=== PATIENT | female | born 1990 | race Caucasian/White ===

== ENCOUNTER → 2016-05-10 | Outpatient (CLI) | payer BC ==
[~2016-05-10] MED LIST: ABILIFY5 MG PO; ADVAIR IH; ALLEGRA 60MG TA60 MG PO; ALLEGRA30 MG; ALLERGY MED; AMBIEN 5MG TABLE5 MG PO; ANTIVERT 25MG25 MG PO; ATARAX50 MG PO; ATIVAN 0.50.5 MG/TAB PO; ATROVENT INHALE14 GM IH; BCP TD; BELSOMRA10 MG PO; BENADRYL50 MG PO; BIRTH CONTROL; BRINTELLIX5; CELEXA40 MG PO; CLEOCIN HC150 MG/CAP PO; COGENTIN .0.5 MG/TAB PO; CYMBALTA 60MG60 MG PO; DESYREL 50MG50 MG PO; DULERA1 AR1 IH; DULERA1 ARO; DULERA1 ARO IH; FLONASE NASAL S16 GM NS; GEODON 20 MG20 MG; GEODON 20 MG20 MG PO; IMITREX100 MG PO; INDERAL 20MG20 MG PO; IRON 27 MG PO; K-DUR 10 MEQ T10 MEQ PO; KEPPRA 500MG500 MG PO; LAMICTAL 25MG T25 MG PO; LATUDA40 MG PO; MACRODANTIN100; MICRO-K 10 EXT10 MEQ PO; MINIPRESS2 MG PO; MIRENA52 MG IU; MOBIC 7.5MG7.5 MG PO; MVI; NAPROSYN500 MG PO; NASONEX SPRAY; NASONEX SPRAY17 GM; NASONEX SPRAY17 GM NS; NORCO 325 MG-51 TAB PO; NORCO 325 MG-7.1 TAB PO; PEPCID 20MG TAB20 MG PO; PERCOCET 5/321 UDTAB PO; PREDNISONE20 MG PO; PREVACID 30MG30 MG PO; PRIL40 PO; PROAIR; PROTONIX 40MG T40 MG PO; PROZAC 20MG20 MG PO; RESTORIL 1515 MG/CAP PO; RISPERDAL 0.5M0.5 MG PO; ROBITUSSIN; RT SPIRIVA18 MCG IH; SEASONIQUE1 TAB PO; SEROQUEL XR150 MG PO; SEROQUEL50 MG PO; SINGULAIR 110 MG/TAB; SINGULAIR 110 MG/TAB PO; SUDAFED 12 HOU120 MG PO; TOPAMAX 100MG100 M1 PO; TOPAMAX 25MG25 M1 PO; TYLENOL 325MG325 MG PO; ULTRAM50 MG PO; VENTOLIN0.09 MG; VENTOLIN0.09 MG IH; WELLBUTRIN XL150 MG PO; ZECUITY; ZITHROMAX Z PA250 MG PO; ZOFRAN 4MG T4 MG/TAB PO; ZONEGRAN 100MG100 MG PO; ZYPREXA ZYD10 MG/TAB PO; ZYRTEC 10MG10 MG PO
== END ==
LOC: BHSO 13:20
DX: F31.81 Bipolar II disorder (principal)

== ENCOUNTER → 2016-06-10 | Outpatient (CLI) | payer BC | LOC: BHSO 09:19 | DX: F31.81 Bipolar II disorder (principal) ==

== ENCOUNTER → 2016-07-08 | Outpatient (CLI) | payer BC | LOC: BHSO 09:23 | DX: F31.81 Bipolar II disorder (principal) ==

== ENCOUNTER 2016-07-17 01:58 | Emergency (ER) | payer BC ==
[~2016-07-17] VITALS: Ht 162.6 cm; Wt 86.4 kg
[~2016-07-17 01:58] MED LIST changes: -ATARAX50 MG PO; -GEODON 20 MG20 MG PO; -K-DUR 10 MEQ T10 MEQ PO; -KEPPRA 500MG500 MG PO; -LATUDA40 MG PO; -MICRO-K 10 EXT10 MEQ PO; -PROTONIX 40MG T40 MG PO
[2016-07-17] MEDS ORDERED: LATUDA40 MG PO (02:05)
[2016-07-17 02:06] VITALS: BP 128/91; TEMP 98.1
[2016-07-17 02:31] LABS: BASO # 0.1 (0.0-0.2); BASO % 0.5 % (0.0-2.0); EOS # 0.3 (0.0-0.7); EOS % 2.3 % (0-4.0); GRAN # 7.2 (1.4-6.5); GRAN % 63.9 % (42.2-75.2); HEMATOCRIT 43.6 % (37.0-47.0); HEMOGLOBIN 14.3 g/dl (12.5-16.0); LYMPH % 26.5 % (20.0-51.0); MEAN CELL VOLUME 88 fl (80.0-100.0); MEAN CORPUSCULAR HEMOGLOBIN 29 pg (27.0-31.0); MEAN CORPUSCULAR HGB CONC 33 g/dl (33.0-37.0); MONO # 0.8 (0.1-0.6); MONO % 6.6 % (1.7-9.3); PLATELET COUNT 254 K/mm3 (130-400); RED BLOOD COUNT 4.94 M/mm3 (4.10-5.30); REDCELL DISTRIBUTION WIDTH-CV 11.9 % (11.5-14.5); WHITE BLOOD COUNT 11.3 K/mm3 (4.8-10.8)
[2016-07-17 02:41] LABS: ACETAMINOPHEN 25 ug/mL (10-30); ADJUSTED CALCIUM 9.6 mg/dL (8.4-10.2); ALANINE AMINOTRANSFERASE 26 U/L (9-52); ALBUMIN 4.4 gm/dL (3.5-5.0); ALKALINE PHOSPHATASE 81 U/L (50-136); ANION GAP 16 mmol/L (7-16); BILIRUBIN,TOTAL 0.7 mg/dL (0.0-1.0); BLOOD UREA NITROGEN 12 mg/dL (7-17); CALCIUM 9.9 mg/dL (8.4-10.2); CARBON DIOXIDE 22 mmol/L (22-30); CHLORIDE 105 mmol/L (98-107); CREATININE, serum 0.93 mg/dL (0.52-1.25); GLUCOSE 101 mg/dL (74-106); POTASSIUM 3.1 mmol/L (3.4-5.0); SODIUM 142 mmol/L (137-145); TOTAL PROTEIN 8.5 gm/dL (6.4-8.2)
[2016-07-17 02:42] LABS: SALICYLATE < 1.0 mg/dL
[2016-07-17 03:01] LABS: AMPHETAMINE URINE NEGATIVE; BARBITURATES URINE NEGATIVE; BENZODIAZEPINES URINE NEGATIVE; BUPRENORPHINE URINE NEGATIVE; METHADONE URINE NEGATIVE; OPIATES URINE NEGATIVE; OXYCODONE URINE NEGATIVE; PHENCYCLIDINE URINE NEGATIVE; PROPOXYPHENE URINE NEGATIVE; THC CANNABINOIDS URINE NEGATIVE
[2016-07-17 04:51] VITALS: PULSE 88
== END 2016-07-17 04:53 ==
LOC: COL.ER 01:58
PROVIDERS: Nurse Practitioner
DX: F32.9 Major depressive disorder, single episode, unspecified (principal); F41.9 Anxiety disorder, unspecified; F43.10 Post-traumatic stress disorder, unspecified; R45.851 Suicidal ideations

== ENCOUNTER → 2016-08-02 | Outpatient (CLI) | payer BC ==
[~2016-08-02] MED LIST changes: +ATARAX50 MG PO; +GEODON 20 MG20 MG PO; +K-DUR 10 MEQ T10 MEQ PO; +KEPPRA 500MG500 MG PO; +LATUDA40 MG PO; +MICRO-K 10 EXT10 MEQ PO; +PROTONIX 40MG T40 MG PO
== END ==
LOC: BHSO 11:23
DX: F43.10 Post-traumatic stress disorder, unspecified (principal)

== ENCOUNTER 2016-08-18 23:58 | Emergency (ER) | payer BC ==
[~2016-08-18] VITALS: Ht 162.6 cm; Wt 81.8 kg
[~2016-08-18 23:58] MED LIST changes: -ATARAX50 MG PO; -GEODON 20 MG20 MG PO; -K-DUR 10 MEQ T10 MEQ PO; -KEPPRA 500MG500 MG PO; -MICRO-K 10 EXT10 MEQ PO; -PROTONIX 40MG T40 MG PO
[2016-08-19 00:03] VITALS: BP 115/65; TEMP 98
[2016-08-19 00:33] LABS: BASO # 0.1 (0.0-0.2); BASO % 0.5 % (0.0-2.0); EOS # 0.2 (0.0-0.7); EOS % 2.2 % (0-4.0); GRAN # 5.9 (1.4-6.5); GRAN % 57.4 % (42.2-75.2); HEMATOCRIT 43.3 % (37.0-47.0); HEMOGLOBIN 14.6 g/dl (12.5-16.0); LYMPH # 3.2 (1.2-3.4); MEAN CELL VOLUME 86 fl (80.0-100.0); MEAN CORPUSCULAR HEMOGLOBIN 29 pg (27.0-31.0); MEAN CORPUSCULAR HGB CONC 34 g/dl (33.0-37.0); MONO # 0.9 (0.1-0.6); MONO % 8.7 % (1.7-9.3); PLATELET COUNT 270 K/mm3 (130-400); RED BLOOD COUNT 5.04 M/mm3 (4.10-5.30); WHITE BLOOD COUNT 10.2 K/mm3 (4.8-10.8)
[2016-08-19 00:45] LABS: ADJUSTED CALCIUM 9.3 mg/dL (8.4-10.2); ALBUMIN 4.2 gm/dL (3.5-5.0); BILIRUBIN,TOTAL 0.9 mg/dL (0.0-1.0); C-REACTIVE PROTEIN 2.2 mg/dL (0.0-0.9); CALCIUM 9.5 mg/dL (8.4-10.2); CREATININE, serum 0.97 mg/dL (0.52-1.25); POTASSIUM 3.3 mmol/L (3.4-5.0); TOTAL PROTEIN 7.4 gm/dL (6.4-8.2)
[2016-08-19] MEDS ORDERED: ZOFRAN 4MG T4 MG/TAB PO (01:40)
[2016-08-19 03:04] VITALS: PULSE 65
== END 2016-08-19 03:05 | disposition home or self-care (01) ==
LOC: COL.ER 23:58
PROVIDERS: Nurse Practitioner
DX: K52.9 Noninfective gastroenteritis and colitis, unspecified (principal); R10.31 Right lower quadrant pain; J45.909 Unspecified asthma, uncomplicated; G40.909 Epilepsy, unspecified, not intractable, without status epilepticus
CPT/HCPCS: J2405; J7030; Q9967

== ENCOUNTER → 2016-09-03 | Outpatient (CLI) | payer BC ==
[~2016-09-03] MED LIST changes: +ATARAX50 MG PO; +GEODON 20 MG20 MG PO; +K-DUR 10 MEQ T10 MEQ PO; +KEPPRA 500MG500 MG PO; +MICRO-K 10 EXT10 MEQ PO; +PROTONIX 40MG T40 MG PO
== END ==
LOC: BHSO 09:05
DX: F43.10 Post-traumatic stress disorder, unspecified (principal)

== ENCOUNTER → 2016-09-13 | Outpatient (CLI) | payer BC | LOC: BHSO 09:46 | DX: F31.81 Bipolar II disorder (principal) ==

== ENCOUNTER → 2016-09-28 | Outpatient (CLI) | payer BC | LOC: BHSO 10:14 | DX: F43.10 Post-traumatic stress disorder, unspecified (principal) ==

== ENCOUNTER → 2016-10-07 | Outpatient (CLI) | payer BC | LOC: BHSO 09:31 | DX: F31.81 Bipolar II disorder (principal) ==

== ENCOUNTER 2016-10-22 15:28 | Emergency (ER) | payer BC ==
[~2016-10-22] VITALS: Ht 162.6 cm; Wt 81.8 kg
[~2016-10-22 15:28] MED LIST changes: -ATARAX50 MG PO; -GEODON 20 MG20 MG PO; -K-DUR 10 MEQ T10 MEQ PO; -KEPPRA 500MG500 MG PO; -MICRO-K 10 EXT10 MEQ PO; -PROTONIX 40MG T40 MG PO
[2016-10-22 15:36] VITALS: BP 121/73; TEMP 98.4
[2016-10-22] MEDS ORDERED: GEODON 20 MG20 MG (15:41)
[2016-10-22 17:00] LABS: BASO % 0.3 % (0.0-2.0); EOS # 0.1 (0.0-0.7); EOS % 1.3 % (0-4.0); GRAN # 7.5 (1.4-6.5); GRAN % 76.8 % (42.2-75.2); HEMATOCRIT 44.6 % (37.0-47.0); HEMOGLOBIN 14.7 g/dl (12.5-16.0); LYMPH # 1.7 (1.2-3.4); LYMPH % 16.8 % (20.0-51.0); MEAN CELL VOLUME 87 fl (80.0-100.0); MEAN CORPUSCULAR HEMOGLOBIN 29 pg (27.0-31.0); MEAN CORPUSCULAR HGB CONC 33 g/dl (33.0-37.0); MONO # 0.4 (0.1-0.6); MONO % 4.5 % (1.7-9.3); PLATELET COUNT 242 K/mm3 (130-400); RED BLOOD COUNT 5.11 M/mm3 (4.10-5.30); REDCELL DISTRIBUTION WIDTH-CV 11.8 % (11.5-14.5); WHITE BLOOD COUNT 9.8 K/mm3 (4.8-10.8)
[2016-10-22 17:11] LABS: ADJUSTED CALCIUM 8.9 mg/dL (8.4-10.2); ALBUMIN 4.5 gm/dL (3.5-5.0); BILIRUBIN,TOTAL 0.7 mg/dL (0.0-1.0); CALCIUM 9.3 mg/dL (8.4-10.2); CREATININE, serum 0.82 mg/dL (0.52-1.25); POTASSIUM 3.2 mmol/L (3.4-5.0); TOTAL PROTEIN 8.1 gm/dL (6.4-8.2)
[2016-10-22] MEDS ORDERED: K-DUR 10 MEQ T10 MEQ PO (18:15)
[2016-10-22] MEDS ORDERED: KEPPRA 500MG500 MG PO (18:15)
[2016-10-22 18:30] VITALS: PULSE 78
== END 2016-10-22 18:32 | disposition home or self-care (01) ==
LOC: COL.ER 15:28
PROVIDERS: Emergency Medicine
DX: G40.209 Localization-related (focal) (partial) symptomatic epilepsy and epileptic syndromes with complex partial seizures, not intractable, without status epilepticus (principal)
CPT/HCPCS: J1953

== ENCOUNTER 2016-11-14 00:25 | Emergency (ER) | payer BC ==
[~2016-11-14] VITALS: Ht 162.6 cm; Wt 85.9 kg
[~2016-11-14 00:25] MED LIST changes: +K-DUR 10 MEQ T10 MEQ PO; +KEPPRA 500MG500 MG PO
[2016-11-14 00:27] VITALS: BP 113/67; PULSE 81; TEMP 98
[2016-11-14] MEDS ORDERED: GEODON 20 MG20 MG PO (00:31)
[2016-11-14] MEDS ORDERED: ATARAX50 MG PO (00:33)
== END 2016-11-14 00:59 | disposition home or self-care (01) ==
LOC: COL.ER 00:25
DX: G40.909 Epilepsy, unspecified, not intractable, without status epilepticus (principal); F32.9 Major depressive disorder, single episode, unspecified; F41.9 Anxiety disorder, unspecified; F43.10 Post-traumatic stress disorder, unspecified

== ENCOUNTER 2016-11-19 22:25 | Emergency (ER) | payer BC ==
[~2016-11-19] VITALS: Ht 162.6 cm; Wt 84.1 kg
[~2016-11-19 22:25] MED LIST changes: +ATARAX50 MG PO; +GEODON 20 MG20 MG PO
[2016-11-19 22:26] VITALS: TEMP 98.6
[2016-11-19 23:04] LABS: BASO # 0.1 (0.0-0.2); BASO % 0.5 % (0.0-2.0); EOS # 0.4 (0.0-0.7); EOS % 3.7 % (0-4.0); GRAN # 5.2 (1.4-6.5); GRAN % 55.3 % (42.2-75.2); HEMATOCRIT 39.2 % (37.0-47.0); LYMPH % 31.8 % (20.0-51.0); MEAN CELL VOLUME 86 fl (80.0-100.0); MEAN CORPUSCULAR HEMOGLOBIN 29 pg (27.0-31.0); MEAN CORPUSCULAR HGB CONC 33 g/dl (33.0-37.0); MEAN PLATELET VOLUME 10.2 fl (7.4-10.4); MONO # 0.8 (0.1-0.6); MONO % 8.5 % (1.7-9.3); PLATELET COUNT 245 K/mm3 (130-400); RED BLOOD COUNT 4.56 M/mm3 (4.10-5.30); REDCELL DISTRIBUTION WIDTH-CV 12.2 % (11.5-14.5); WHITE BLOOD COUNT 9.4 K/mm3 (4.8-10.8)
[2016-11-19 23:16] LABS: ADJUSTED CALCIUM 9.3 mg/dL (8.4-10.2); BILIRUBIN,TOTAL 0.5 mg/dL (0.0-1.0); CALCIUM 9.3 mg/dL (8.4-10.2); CREATININE, serum 0.84 mg/dL (0.52-1.25); POTASSIUM 3.6 mmol/L (3.4-5.0); TOTAL PROTEIN 7.2 gm/dL (6.4-8.2)
[2016-11-19 23:16] LABS: PH 7 (5-8); SQUAMOUS EPITHELIAL 0-2 /hpf; URINE APPEARANCE Clear; URINE BACTERIA Rare /hpf; URINE BILIRUBIN Negative (NEGATIVE); URINE BLOOD Negative (NEGATIVE); URINE COLOR Straw; URINE GLUCOSE Negative (NEGATIVE); URINE KETONE Negative (NEGATIVE); URINE RBC 0-2 /hpf; URINE UROBILINOGEN Negative (NEGATIVE); URINE WBC 0-2 /hpf
[2016-11-19 23:32] LABS: PROLACTIN 34.5 ng/mL (3.0-18.6)
[2016-11-20 00:13] VITALS: BP 128/78; PULSE 90
== END 2016-11-20 00:14 | disposition home or self-care (01) ==
LOC: COL.ER 22:25
PROVIDERS: Emergency Medicine
DX: R42 Dizziness and giddiness (principal); G40.909 Epilepsy, unspecified, not intractable, without status epilepticus
CPT/HCPCS: J7030

== ENCOUNTER 2016-11-23 01:02 | Inpatient (IN) | payer BC ==
[~2016-11-23] VITALS: Ht 165.1 cm; Wt 89.5 kg
[2016-11-23] VITALS (303 sets, daily range): BP systolic 118–135; BP diastolic 87; PULSE 93–107; TEMP 97.5–98.7; O2SAT 70–100
[2016-11-23 01:20] LABS: BASO # 0.1 (0.0-0.2); BASO % 0.6 % (0.0-2.0); EOS # 0.3 (0.0-0.7); EOS % 2.4 % (0-4.0); GRAN % 55.4 % (42.2-75.2); HEMATOCRIT 40.1 % (37.0-47.0); HEMOGLOBIN 13.5 g/dl (12.5-16.0); LYMPH # 3.5 (1.2-3.4); MEAN CELL VOLUME 86 fl (80.0-100.0); MEAN CORPUSCULAR HEMOGLOBIN 29 pg (27.0-31.0); MEAN CORPUSCULAR HGB CONC 34 g/dl (33.0-37.0); MEAN PLATELET VOLUME 10.2 fl (7.4-10.4); MONO % 9.3 % (1.7-9.3); PLATELET COUNT 231 K/mm3 (130-400); RED BLOOD COUNT 4.68 M/mm3 (4.10-5.30); REDCELL DISTRIBUTION WIDTH-CV 12.4 % (11.5-14.5); WHITE BLOOD COUNT 10.8 K/mm3 (4.8-10.8)
[2016-11-23 01:32] LABS: ALANINE AMINOTRANSFERASE 25 U/L (9-52); ALBUMIN 4.3 gm/dL (3.5-5.0); ALKALINE PHOSPHATASE 71 U/L (50-136); ANION GAP 12 mmol/L (7-16); BILIRUBIN,TOTAL 0.6 mg/dL (0.0-1.0); BLOOD UREA NITROGEN 9 mg/dL (7-17); CALCIUM 9.2 mg/dL (8.4-10.2); CARBON DIOXIDE 22 mmol/L (22-30); CHLORIDE 103 mmol/L (98-107); CREATININE, serum 0.93 mg/dL (0.52-1.25); GLUCOSE 119 mg/dL (74-106); POTASSIUM 3.4 mmol/L (3.4-5.0); SALICYLATE < 1.0 mg/dL; SODIUM 137 mmol/L (137-145); TOTAL PROTEIN 7.6 gm/dL (6.4-8.2)
[2016-11-23 01:33] LABS: ACETAMINOPHEN 199 ug/mL (10-30)
[2016-11-23 01:43] LABS: PH 5 (5-8); SQUAMOUS EPITHELIAL 0-2 /hpf; URINE APPEARANCE Clear; URINE BACTERIA Occasional /hpf; URINE BILIRUBIN Negative (NEGATIVE); URINE BLOOD Negative (NEGATIVE); URINE COLOR Yellow; URINE GLUCOSE Negative (NEGATIVE); URINE KETONE Negative (NEGATIVE); URINE UROBILINOGEN Negative (NEGATIVE)
[2016-11-23 01:48] LABS: AMPHETAMINE URINE NEGATIVE; BARBITURATES URINE NEGATIVE; BENZODIAZEPINES URINE POSITIVE; BUPRENORPHINE URINE NEGATIVE; METHADONE URINE NEGATIVE; OPIATES URINE NEGATIVE; OXYCODONE URINE NEGATIVE; PHENCYCLIDINE URINE NEGATIVE; PROPOXYPHENE URINE NEGATIVE; THC CANNABINOIDS URINE NEGATIVE
[2016-11-23 02:58] LABS: PROTHROMBIN TIME 11.5 SECONDS (9.7-12.8)
[2016-11-23 03:57] LABS: AMYLASE 89 U/L (30-110); LIPASE 77 U/L (23-300); MAGNESIUM 1.6 mg/dL (1.6-2.3)
[2016-11-23] MEDS ORDERED: DULERA1 ARO IH (04:15)
[2016-11-23] MEDS ORDERED: DULERA1 AR1 IH (04:16)
[2016-11-23 08:18] LABS: INR 1.1 (0.8-3.0); PROTHROMBIN TIME 12.2 SECONDS (9.7-12.8)
[2016-11-23 08:22] LABS: ACETAMINOPHEN 39 ug/mL (10-30); ADJUSTED CALCIUM 8.5 mg/dL (8.4-10.2); ALANINE AMINOTRANSFERASE 21 U/L (9-52); ALKALINE PHOSPHATASE < 20 U/L (50-136); ANION GAP 17 mmol/L (7-16); BILIRUBIN,TOTAL 0.5 mg/dL (0.0-1.0); BLOOD UREA NITROGEN 8 mg/dL (7-17); CALCIUM 8.5 mg/dL (8.4-10.2); CARBON DIOXIDE 21 mmol/L (22-30); CHLORIDE 103 mmol/L (98-107); CREATININE, serum 0.66 mg/dL (0.52-1.25); GLUCOSE 160 mg/dL (74-106); POTASSIUM 3.3 mmol/L (3.4-5.0); SODIUM 141 mmol/L (137-145); TOTAL PROTEIN 7.2 gm/dL (6.4-8.2)
[2016-11-23 08:38] LABS: BILIRUBIN,DIRECT 0.4 mg/dL (0.0-0.4)
[2016-11-24 00:30] VITALS: BP 136/80; PULSE 105; TEMP 98.6
[2016-11-24 04:30] VITALS: BP 126/93; PULSE 116; TEMP 98.8
[2016-11-24 05:51] LABS: BASO % 0.4 % (0.0-2.0); EOS % 0.2 % (0-4.0); GRAN # 6.3 (1.4-6.5); GRAN % 70.3 % (42.2-75.2); HEMOGLOBIN 13.3 g/dl (12.5-16.0); LYMPH % 22.2 % (20.0-51.0); MEAN CELL VOLUME 85 fl (80.0-100.0); MEAN CORPUSCULAR HEMOGLOBIN 28 pg (27.0-31.0); MEAN CORPUSCULAR HGB CONC 33 g/dl (33.0-37.0); MEAN PLATELET VOLUME 10.4 fl (7.4-10.4); MONO # 0.6 (0.1-0.6); MONO % 6.7 % (1.7-9.3); PLATELET COUNT 226 K/mm3 (130-400); RED BLOOD COUNT 4.71 M/mm3 (4.10-5.30); REDCELL DISTRIBUTION WIDTH-CV 12.5 % (11.5-14.5)
[2016-11-24 05:55] LABS: INR 1.1 (0.8-3.0); PROTHROMBIN TIME 12.7 SECONDS (9.7-12.8)
[2016-11-24 06:05] LABS: ADJUSTED CALCIUM 9.5 mg/dL (8.4-10.2); ALBUMIN 3.8 gm/dL (3.5-5.0); BILIRUBIN,TOTAL 0.6 mg/dL (0.0-1.0); CALCIUM 9.3 mg/dL (8.4-10.2); CREATININE, serum 0.7 mg/dL (0.52-1.25); POTASSIUM 3.2 mmol/L (3.4-5.0); TOTAL PROTEIN 6.9 gm/dL (6.4-8.2)
[2016-11-24 07:30] VITALS: BP 135/85; PULSE 80; TEMP 98.8
[2016-11-24] MEDS ORDERED: MICRO-K 10 EXT10 MEQ PO (14:43)
[2016-11-24] MEDS ORDERED: PROTONIX 40MG T40 MG PO (14:43)
== END 2016-11-24 17:30 | DRG 918 ==
LOC: COL.ER 01:02 → ICU 04:22
PROVIDERS: Family Medicine; Nurse Practitioner Family
DX: T39.1X2A Poisoning by 4-Aminophenol derivatives, intentional self-harm, initial encounter (principal); F31.81 Bipolar II disorder; F43.12 Post-traumatic stress disorder, chronic; G40.909 Epilepsy, unspecified, not intractable, without status epilepticus; J45.909 Unspecified asthma, uncomplicated; F60.3 Borderline personality disorder; E87.6 Hypokalemia
CPT/HCPCS: 90791-AI; 99232-AI; 99239; C9113; J0132; J2405; J7030; J7060; J7070

== ENCOUNTER → 2016-12-10 | Outpatient (CLI) | payer BC ==
[~2016-12-10] MED LIST changes: +MICRO-K 10 EXT10 MEQ PO; +PROTONIX 40MG T40 MG PO
== END ==
LOC: BHSO 10:03
DX: F43.10 Post-traumatic stress disorder, unspecified (principal)

== ENCOUNTER → 2017-01-20 | Outpatient (CLI) | payer BC | LOC: BHSO 10:34 | DX: F31.81 Bipolar II disorder (principal) ==

== ENCOUNTER → 2017-02-09 | Outpatient (CLI) | payer BC | LOC: BHSO 09:15 | DX: F31.81 Bipolar II disorder (principal) ==

== ENCOUNTER → 2017-03-18 | Outpatient (CLI) | payer BC ==
[~2017-03-18] MED LIST changes: +ATARAX 10MG10 MG/TAB PO; +KLONOPIN 1MG1 MG; +ZYPREXA20 MG PO
== END ==
LOC: BHSO 09:30
DX: F31.81 Bipolar II disorder (principal)

== ENCOUNTER → 2017-04-11 | Outpatient (CLI) | payer BC | LOC: BHSO 09:25 | DX: F43.10 Post-traumatic stress disorder, unspecified (principal) ==

== ENCOUNTER 2017-06-25 20:35 | Emergency (ER) | payer BC ==
[~2017-06-25] VITALS: Ht 162.6 cm; Wt 86.4 kg
[2017-06-25 20:42] VITALS: BP 156/93; TEMP 98.2
[2017-06-25] MEDS ORDERED: HALDOL 1MG T1 MG/TAB PO (20:53)
[2017-06-25] MEDS ORDERED: BREO IH (20:54)
[2017-06-25] MEDS ORDERED: DAYSEE (20:54)
[2017-06-25 21:26] LABS: CREATININE, serum 0.83 mg/dL (0.52-1.25); POTASSIUM 3.5 mmol/L (3.4-5.0)
[2017-06-25] MEDS ORDERED: ATIVAN 1MG T1 MG/TAB PO (21:41)
[2017-06-25 22:26] VITALS: PULSE 105
== END 2017-06-25 22:26 | disposition home or self-care (01) ==
LOC: COL.ER 20:35
PROVIDERS: Emergency Medicine
DX: R51 Headache (principal); F43.10 Post-traumatic stress disorder, unspecified; F41.9 Anxiety disorder, unspecified; F32.9 Major depressive disorder, single episode, unspecified; Z98.890 Other specified postprocedural states; Z79.51 Long term (current) use of inhaled steroids
CPT/HCPCS: J2060; J7030

== ENCOUNTER → 2017-06-28 | Outpatient (CLI) | payer BC ==
[~2017-06-28] MED LIST changes: +ATIVAN 1MG T1 MG/TAB PO; +BREO IH; +DAYSEE; +HALDOL 1MG T1 MG/TAB PO
== END ==
LOC: BHSO 08:01
DX: F31.81 Bipolar II disorder (principal)
CPT/HCPCS: G0463

== ENCOUNTER → 2017-08-24 | Outpatient (CLI) | payer BC | LOC: BHSO 09:49 | DX: F43.10 Post-traumatic stress disorder, unspecified (principal) | CPT/HCPCS: G0463 ==

== ENCOUNTER 2017-09-15 22:08 | Emergency (ER) | payer BC ==
[~2017-09-15] VITALS: Ht 162.6 cm; Wt 95.5 kg
[~2017-09-15 22:08] MED LIST changes: +ZONEGRAN50 MG PO
[2017-09-15 22:14] VITALS: TEMP 98.3
[2017-09-15 22:35] LABS: BASO # 0.1 (0.0-0.2); BASO % 0.5 % (0.0-2.0); EOS # 0.3 (0.0-0.7); EOS % 2.5 % (0-4.0); GRAN # 6.7 (1.4-6.5); GRAN % 63.4 % (42.2-75.2); HEMATOCRIT 41.8 % (37.0-47.0); HEMOGLOBIN 13.7 g/dl (12.5-16.0); LYMPH # 2.6 (1.2-3.4); LYMPH % 24.4 % (20.0-51.0); MEAN CELL VOLUME 89 fl (80.0-100.0); MEAN CORPUSCULAR HEMOGLOBIN 29 pg (27.0-31.0); MEAN CORPUSCULAR HGB CONC 33 g/dl (33.0-37.0); MEAN PLATELET VOLUME 10.5 fl (7.4-10.4); MONO # 0.9 (0.1-0.6); MONO % 8.9 % (1.7-9.3); PLATELET COUNT 260 K/mm3 (130-400); RED BLOOD COUNT 4.72 M/mm3 (4.10-5.30); REDCELL DISTRIBUTION WIDTH-CV 12.8 % (11.5-14.5)
[2017-09-15] MEDS ORDERED: ZYPREXA20 MG PO (22:41)
[2017-09-15 22:47] LABS: ACETAMINOPHEN < 10 ug/mL (10-30); ALANINE AMINOTRANSFERASE 28 U/L (9-52); ALBUMIN 3.8 gm/dL (3.5-5.0); ALKALINE PHOSPHATASE 48 U/L (50-136); ANION GAP 15 mmol/L (7-16); AST,SGOT 29 U/L (15-37); BILIRUBIN,TOTAL 0.3 mg/dL (0.0-1.0); BLOOD UREA NITROGEN 7 mg/dL (7-17); CALCIUM 9.1 mg/dL (8.4-10.2); CARBON DIOXIDE 19 mmol/L (22-30); CHLORIDE 107 mmol/L (98-107); CREATININE, serum 0.78 mg/dL (0.52-1.25); GLUCOSE 167 mg/dL (74-106); POTASSIUM 3.9 mmol/L (3.4-5.0); SODIUM 141 mmol/L (137-145); TOTAL PROTEIN 7.6 gm/dL (6.4-8.2)
[2017-09-15 23:19] LABS: TRICYCLIC ANTIDEPRESS URINE NEGATIVE
[2017-09-16 00:45] VITALS: BP 136/95; PULSE 107
== END 2017-09-16 00:46 | disposition home or self-care (01) ==
LOC: COL.ER 22:08
PROVIDERS: Emergency Medicine
DX: F41.9 Anxiety disorder, unspecified (principal); F31.9 Bipolar disorder, unspecified; Z79.51 Long term (current) use of inhaled steroids
CPT/HCPCS: J1200; J1630; J2060; J7030

== ENCOUNTER 2017-10-04 13:47 | Emergency (ER) | payer BC ==
[~2017-10-04] VITALS: Ht 160 cm; Wt 95.5 kg
[2017-10-04 13:49] VITALS: TEMP 99
[2017-10-04] MEDS ORDERED: PROTONIX 40MG T40 MG PO (13:57)
[2017-10-04 14:35] LABS: BASO # 0.1 (0.0-0.2); BASO % 0.5 % (0.0-2.0); EOS # 0.3 (0.0-0.7); EOS % 3.4 % (0-4.0); GRAN # 6.7 (1.4-6.5); GRAN % 69.8 % (42.2-75.2); HEMATOCRIT 39.8 % (37.0-47.0); HEMOGLOBIN 13.3 g/dl (12.5-16.0); LYMPH # 1.9 (1.2-3.4); LYMPH % 19.4 % (20.0-51.0); MEAN CELL VOLUME 88 fl (80.0-100.0); MEAN CORPUSCULAR HEMOGLOBIN 30 pg (27.0-31.0); MEAN CORPUSCULAR HGB CONC 33 g/dl (33.0-37.0); MEAN PLATELET VOLUME 11.2 fl (7.4-10.4); MONO # 0.6 (0.1-0.6); MONO % 6.6 % (1.7-9.3); PLATELET COUNT 212 K/mm3 (130-400); REDCELL DISTRIBUTION WIDTH-CV 12.5 % (11.5-14.5)
[2017-10-04 14:38] LABS: ALANINE AMINOTRANSFERASE 27 U/L (9-52); ALBUMIN 3.5 gm/dL (3.5-5.0); ALKALINE PHOSPHATASE 50 U/L (50-136); ANION GAP 14 mmol/L (7-16); AST,SGOT 36 U/L (15-37); BILIRUBIN,TOTAL 0.4 mg/dL (0.0-1.0); BLOOD UREA NITROGEN 10 mg/dL (7-17); CALCIUM 9.3 mg/dL (8.4-10.2); CARBON DIOXIDE 17 mmol/L (22-30); CHLORIDE 104 mmol/L (98-107); CREATININE, serum 0.79 mg/dL (0.52-1.25); GLUCOSE 337 mg/dL (74-106); POTASSIUM 3.8 mmol/L (3.4-5.0); SODIUM 136 mmol/L (137-145); TOTAL PROTEIN 6.9 gm/dL (6.4-8.2)
[2017-10-04 14:39] LABS: ACETAMINOPHEN < 10 ug/mL (10-30); ALCOHOL(ethanol),MEDICAL < 10 mg/dL; SALICYLATE < 1.0 mg/dL
[2017-10-04 15:28] LABS: COLLECTION METHOD CLEAN CATCH
[2017-10-04 15:41] LABS: PH 6 (5-8); URINE APPEARANCE Clear; URINE BACTERIA None Seen /hpf; URINE BILIRUBIN Negative (NEGATIVE); URINE BLOOD Negative (NEGATIVE); URINE COLOR Straw; URINE GLUCOSE 3+ (NEGATIVE); URINE KETONE Negative (NEGATIVE); URINE LEUKOCYTE ESTERASE Negative (NEGATIVE); URINE NITRATE Negative (NEGATIVE); URINE PROTEIN(semi-quant) Negative (NEGATIVE); URINE RBC 0-2 /hpf; URINE UROBILINOGEN Negative (NEGATIVE)
[2017-10-04 15:46] LABS: TRICYCLIC ANTIDEPRESS URINE NEGATIVE
[2017-10-04 19:34] VITALS: BP 141/91; PULSE 128
== END 2017-10-04 19:38 ==
LOC: COL.ER 13:47
PROVIDERS: Emergency Medicine
DX: R45.851 Suicidal ideations (principal); F32.9 Major depressive disorder, single episode, unspecified; F41.9 Anxiety disorder, unspecified; J45.909 Unspecified asthma, uncomplicated; Z88.8 Allergy status to other drugs, medicaments and biological substances

== ENCOUNTER → 2017-10-26 | Outpatient (CLI) | payer BC | LOC: BHSO 09:24 | DX: F31.81 Bipolar II disorder (principal) | CPT/HCPCS: G0463 ==

== ENCOUNTER → 2017-11-15 | Outpatient (CLI) | payer BC | LOC: COL.RAD 06:04 | DX: R11.10 Vomiting, unspecified (principal); R68.81 Early satiety; E11.9 Type 2 diabetes mellitus without complications; E66.01 Morbid (severe) obesity due to excess calories | CPT/HCPCS: A9541 ==

== ENCOUNTER 2017-11-22 22:14 | Emergency (ER) | payer BC ==
[~2017-11-22] VITALS: Ht 162.6 cm; Wt 94.1 kg
[~2017-11-22 22:14] MED LIST changes: +CARAFATE S1 GM/10 ML PO
[2017-11-22 22:16] VITALS: BP 123/77; TEMP 99
[2017-11-22 22:38] LABS: COLLECTION METHOD CLEAN CATCH
[2017-11-22 22:41] LABS: BASO # 0.1 (0.0-0.2); BASO % 0.6 % (0.0-2.0); EOS # 0.4 (0.0-0.7); EOS % 4.2 % (0-4.0); GRAN # 4.7 (1.4-6.5); GRAN % 53.6 % (42.2-75.2); HEMATOCRIT 42.4 % (37.0-47.0); HEMOGLOBIN 14.2 g/dl (12.5-16.0); LYMPH # 2.9 (1.2-3.4); LYMPH % 33.1 % (20.0-51.0); MEAN CELL VOLUME 87 fl (80.0-100.0); MEAN CORPUSCULAR HEMOGLOBIN 29 pg (27.0-31.0); MEAN CORPUSCULAR HGB CONC 34 g/dl (33.0-37.0); MEAN PLATELET VOLUME 10.8 fl (7.4-10.4); MONO # 0.7 (0.1-0.6); MONO % 8.4 % (1.7-9.3); PLATELET COUNT 259 K/mm3 (130-400); RED BLOOD COUNT 4.87 M/mm3 (4.10-5.30); REDCELL DISTRIBUTION WIDTH-CV 12.1 % (11.5-14.5)
[2017-11-22 22:46] LABS: MUCOUS Present /lpf; PH 5 (5-8); SQUAMOUS EPITHELIAL 0-2 /hpf; URINE APPEARANCE Clear; URINE BACTERIA Rare /hpf; URINE BILIRUBIN Negative (NEGATIVE); URINE BLOOD Negative (NEGATIVE); URINE COLOR Yellow; URINE GLUCOSE Negative (NEGATIVE); URINE KETONE Negative (NEGATIVE); URINE LEUKOCYTE ESTERASE Negative (NEGATIVE); URINE NITRATE Negative (NEGATIVE); URINE PROTEIN(semi-quant) Negative (NEGATIVE); URINE RBC None Seen /hpf; URINE UROBILINOGEN Negative (NEGATIVE)
[2017-11-22 22:54] LABS: BILIRUBIN,TOTAL 0.2 mg/dL (0.0-1.0); C-REACTIVE PROTEIN 2.5 mg/dL (0.0-0.9); CALCIUM 9.4 mg/dL (8.4-10.2); CREATININE, serum 0.74 mg/dL (0.52-1.25); POTASSIUM 3.6 mmol/L (3.4-5.0); TOTAL PROTEIN 7.2 gm/dL (6.4-8.2)
[2017-11-22] MEDS ORDERED: GLUCOPHAGE500 MG/TAB PO (23:09)
[2017-11-22] MEDS ORDERED: MIRTAZAPINE7.5 MG PO (23:10)
[2017-11-22] MEDS ORDERED: ZOFRAN ODT4 MG PO (23:11)
[2017-11-23 01:54] VITALS: PULSE 76
== END 2017-11-23 02:11 | disposition home or self-care (01) ==
LOC: COL.ER 22:14
PROVIDERS: Nurse Practitioner
DX: R10.13 Epigastric pain (principal); R11.10 Vomiting, unspecified; J45.909 Unspecified asthma, uncomplicated; F32.9 Major depressive disorder, single episode, unspecified; F31.9 Bipolar disorder, unspecified; F41.9 Anxiety disorder, unspecified; F43.10 Post-traumatic stress disorder, unspecified; F12.90 Cannabis use, unspecified, uncomplicated; Z88.2 Allergy status to sulfonamides; Z79.84 Long term (current) use of oral hypoglycemic drugs
CPT/HCPCS: J2405; J2550; J3010

== ENCOUNTER 2017-12-13 13:51 | Day surgery (SDC) | payer BC ==
[~2017-12-13] VITALS: Ht 162.6 cm; Wt 94.0 kg
[~2017-12-13 13:51] MED LIST changes: +GLUCOPHAGE500 MG/TAB PO; +MIRTAZAPINE7.5 MG PO; +ZOFRAN ODT4 MG PO
[2017-12-13 14:11] VITALS: BP 116/77; PULSE 81; TEMP 99.3
[2017-12-13] MEDS ORDERED: PROMETHAZINE12.5 M5 PO (15:28)
[2017-12-13 15:45] VITALS: BP 143/77; PULSE 119; TEMP 99.1
[2017-12-13 16:00] VITALS: BP 139/75; PULSE 109
[2017-12-13 16:15] VITALS: BP 147/84; PULSE 109
== END 2017-12-13 16:38 | disposition home or self-care (01) ==
LOC: SDCO 13:51
DX: K44.9 Diaphragmatic hernia without obstruction or gangrene (principal); R19.7 Diarrhea, unspecified; R11.2 Nausea with vomiting, unspecified; E11.9 Type 2 diabetes mellitus without complications; F32.9 Major depressive disorder, single episode, unspecified; F41.9 Anxiety disorder, unspecified; J45.909 Unspecified asthma, uncomplicated; K21.9 Gastro-esophageal reflux disease without esophagitis; G40.209 Localization-related (focal) (partial) symptomatic epilepsy and epileptic syndromes with complex partial seizures, not intractable, without status epilepticus; Z79.84 Long term (current) use of oral hypoglycemic drugs
CPT/HCPCS: J2704; J7030

== ENCOUNTER 2017-12-22 16:50 | Emergency (ER) | payer BC ==
[~2017-12-22] VITALS: Ht 160 cm; Wt 94.5 kg
[~2017-12-22 16:50] MED LIST changes: +PROMETHAZINE12.5 M5 PO
[2017-12-22 16:58] VITALS: TEMP 99
[2017-12-22 17:16] LABS: COLLECTION METHOD CLEAN CATCH
[2017-12-22 17:23] LABS: MUCOUS Present /lpf; PH 6 (5-8); SQUAMOUS EPITHELIAL 0-2 /hpf; URINE APPEARANCE Clear; URINE BACTERIA Rare /hpf; URINE BILIRUBIN Negative (NEGATIVE); URINE BLOOD 3+ (NEGATIVE); URINE COLOR Yellow; URINE GLUCOSE Negative (NEGATIVE); URINE KETONE Negative (NEGATIVE); URINE LEUKOCYTE ESTERASE Negative (NEGATIVE); URINE NITRATE Negative (NEGATIVE); URINE PROTEIN(semi-quant) Negative (NEGATIVE); URINE UROBILINOGEN >=4.0 mg/dL (NEGATIVE)
[2017-12-22 17:36] LABS: TRICYCLIC ANTIDEPRESS URINE NEGATIVE
[2017-12-22 17:38] LABS: BASO % 0.5 % (0.0-2.0); EOS # 0.4 (0.0-0.7); EOS % 4.6 % (0-4.0); GRAN % 59.4 % (42.2-75.2); HEMATOCRIT 45.7 % (37.0-47.0); HEMOGLOBIN 14.8 g/dl (12.5-16.0); LYMPH # 2.3 (1.2-3.4); LYMPH % 26.7 % (20.0-51.0); MEAN CELL VOLUME 89 fl (80.0-100.0); MEAN CORPUSCULAR HEMOGLOBIN 29 pg (27.0-31.0); MEAN CORPUSCULAR HGB CONC 32 g/dl (33.0-37.0); MEAN PLATELET VOLUME 10.5 fl (7.4-10.4); MONO # 0.7 (0.1-0.6); MONO % 8.6 % (1.7-9.3); PLATELET COUNT 242 K/mm3 (130-400); RED BLOOD COUNT 5.12 M/mm3 (4.10-5.30); REDCELL DISTRIBUTION WIDTH-CV 12.3 % (11.5-14.5)
[2017-12-22 17:51] LABS: ALANINE AMINOTRANSFERASE 35 U/L (9-52); ALBUMIN 4.1 gm/dL (3.5-5.0); ALKALINE PHOSPHATASE 60 U/L (50-136); ANION GAP 13 mmol/L (7-16); AST,SGOT 31 U/L (15-37); BILIRUBIN,TOTAL 0.4 mg/dL (0.0-1.0); BLOOD UREA NITROGEN 9 mg/dL (7-17); CALCIUM 9.1 mg/dL (8.4-10.2); CARBON DIOXIDE 25 mmol/L (22-30); CHLORIDE 102 mmol/L (98-107); CREATININE, serum 0.68 mg/dL (0.52-1.25); GLUCOSE 117 mg/dL (74-106); POTASSIUM 3.8 mmol/L (3.4-5.0); SODIUM 139 mmol/L (137-145); TOTAL PROTEIN 7.5 gm/dL (6.4-8.2)
[2017-12-22 17:54] LABS: ACETAMINOPHEN < 10 ug/mL (10-30); ALCOHOL(ethanol),MEDICAL < 10 mg/dL; SALICYLATE < 1.0 mg/dL
[2017-12-22 20:30] VITALS: BP 126/86; PULSE 79
== END 2017-12-22 20:49 | disposition home or self-care (01) ==
LOC: COL.ER 16:50
PROVIDERS: Nurse Practitioner
DX: F32.9 Major depressive disorder, single episode, unspecified (principal); E11.9 Type 2 diabetes mellitus without complications; J45.909 Unspecified asthma, uncomplicated; F43.10 Post-traumatic stress disorder, unspecified; K21.9 Gastro-esophageal reflux disease without esophagitis; F60.3 Borderline personality disorder; Z79.84 Long term (current) use of oral hypoglycemic drugs